=== PATIENT | female | born 1940 | race Caucasian/White ===

== ENCOUNTER → 2016-05-14 | Outpatient (CLI) | payer OTHER | LOC: HYPER 06:57 | DX: S81.802D Unspecified open wound, left lower leg, subsequent encounter (principal); R60.0 Localized edema; J44.9 Chronic obstructive pulmonary disease, unspecified; Z87.891 Personal history of nicotine dependence; X58.XXXD Exposure to other specified factors, subsequent encounter ==

== ENCOUNTER → 2017-04-30 | Outpatient (CLI) | payer OTHER | LOC: RAD 12:03 | DX: I51.7 Cardiomegaly (principal); J44.9 Chronic obstructive pulmonary disease, unspecified; M41.86 Other forms of scoliosis, lumbar region ==

== ENCOUNTER → 2017-05-02 | Outpatient (CLI) | payer OTHER ==
[2017-05-02 15:42] LABS: CREATININE 0.7 mg/dL (0.6-1.0)
== END ==
LOC: CAT 14:33
PROVIDERS: Internal Medicine Pulmonary Disease
DX: J84.9 Interstitial pulmonary disease, unspecified (principal); I25.10 Atherosclerotic heart disease of native coronary artery without angina pectoris; I48.91 Unspecified atrial fibrillation; J98.4 Other disorders of lung; J44.9 Chronic obstructive pulmonary disease, unspecified

== ENCOUNTER → 2017-05-16 | Outpatient (CLI) | payer OTHER | LOC: HYPER | DX: T81.89XA Other complications of procedures, not elsewhere classified, initial encounter (principal); I87.2 Venous insufficiency (chronic) (peripheral); L97.811 Non-pressure chronic ulcer of other part of right lower leg limited to breakdown of skin; L97.821 Non-pressure chronic ulcer of other part of left lower leg limited to breakdown of skin; J44.9 Chronic obstructive pulmonary disease, unspecified; E78.5 Hyperlipidemia, unspecified; I48.0 Paroxysmal atrial fibrillation; M19.90 Unspecified osteoarthritis, unspecified site; M85.80 Other specified disorders of bone density and structure, unspecified site; M81.0 Age-related osteoporosis without current pathological fracture; Z87.891 Personal history of nicotine dependence; Z72.89 Other problems related to lifestyle; Y83.8 Other surgical procedures as the cause of abnormal reaction of the patient, or of later complication, without mention of misadventure at the time of the procedure ==

== ENCOUNTER → 2017-11-19 | Outpatient (CLI) | payer OTHER | LOC: HYPER 05-30 06:51 | DX: T81.4XXD Infection following a procedure, subsequent encounter (principal); S81.802A Unspecified open wound, left lower leg, initial encounter; I87.2 Venous insufficiency (chronic) (peripheral); E78.5 Hyperlipidemia, unspecified; I48.0 Paroxysmal atrial fibrillation; M81.0 Age-related osteoporosis without current pathological fracture; M19.90 Unspecified osteoarthritis, unspecified site; J44.9 Chronic obstructive pulmonary disease, unspecified; Z87.891 Personal history of nicotine dependence; Z79.01 Long term (current) use of anticoagulants; Y83.8 Other surgical procedures as the cause of abnormal reaction of the patient, or of later complication, without mention of misadventure at the time of the procedure; X58.XXXA Exposure to other specified factors, initial encounter; Y93.89 Activity, other specified; Y92.89 Other specified places as the place of occurrence of the external cause; Y99.8 Other external cause status ==

== ENCOUNTER → 2018-08-06 | Outpatient (CLI) | payer OTHER | LOC: HYPER 08-05 07:45 | DX: L02.416 Cutaneous abscess of left lower limb (principal); S80.12XA Contusion of left lower leg, initial encounter; E78.5 Hyperlipidemia, unspecified; I48.0 Paroxysmal atrial fibrillation; I87.2 Venous insufficiency (chronic) (peripheral); R60.0 Localized edema; M85.80 Other specified disorders of bone density and structure, unspecified site; M81.0 Age-related osteoporosis without current pathological fracture; M19.90 Unspecified osteoarthritis, unspecified site; J44.9 Chronic obstructive pulmonary disease, unspecified; Z87.891 Personal history of nicotine dependence; Z79.01 Long term (current) use of anticoagulants; X58.XXXA Exposure to other specified factors, initial encounter; Y93.89 Activity, other specified; Y92.89 Other specified places as the place of occurrence of the external cause; Y99.8 Other external cause status ==

== ENCOUNTER → 2018-10-14 | Outpatient (CLI) | payer OTHER | LOC: HYPER 08-13 06:36 | DX: S80.12XA Contusion of left lower leg, initial encounter (principal); L02.416 Cutaneous abscess of left lower limb; I87.2 Venous insufficiency (chronic) (peripheral); I48.0 Paroxysmal atrial fibrillation; E78.5 Hyperlipidemia, unspecified; M85.80 Other specified disorders of bone density and structure, unspecified site; M81.0 Age-related osteoporosis without current pathological fracture; M19.90 Unspecified osteoarthritis, unspecified site; R60.0 Localized edema; J44.9 Chronic obstructive pulmonary disease, unspecified; Z87.891 Personal history of nicotine dependence; Z79.01 Long term (current) use of anticoagulants; X58.XXXA Exposure to other specified factors, initial encounter; Y93.89 Activity, other specified; Y92.89 Other specified places as the place of occurrence of the external cause; Y99.8 Other external cause status ==

== ENCOUNTER → 2018-11-06 | Outpatient (CLI) | payer OTHER | LOC: HYPER 10-28 10:22 | DX: S80.12XD Contusion of left lower leg, subsequent encounter (principal); L02.416 Cutaneous abscess of left lower limb; I87.2 Venous insufficiency (chronic) (peripheral); I48.0 Paroxysmal atrial fibrillation; E78.5 Hyperlipidemia, unspecified; M85.80 Other specified disorders of bone density and structure, unspecified site; M81.0 Age-related osteoporosis without current pathological fracture; M19.90 Unspecified osteoarthritis, unspecified site; R60.0 Localized edema; J44.9 Chronic obstructive pulmonary disease, unspecified; Z87.891 Personal history of nicotine dependence; Z79.01 Long term (current) use of anticoagulants; X58.XXXD Exposure to other specified factors, subsequent encounter ==

== ENCOUNTER → 2018-11-24 | Outpatient (CLI) | payer OTHER | LOC: HYPER 06:55 | DX: S80.12XD Contusion of left lower leg, subsequent encounter (principal); S81.801D Unspecified open wound, right lower leg, subsequent encounter; L02.416 Cutaneous abscess of left lower limb; I87.2 Venous insufficiency (chronic) (peripheral); E78.5 Hyperlipidemia, unspecified; M85.80 Other specified disorders of bone density and structure, unspecified site; M81.0 Age-related osteoporosis without current pathological fracture; I48.0 Paroxysmal atrial fibrillation; R60.0 Localized edema; M19.90 Unspecified osteoarthritis, unspecified site; J44.9 Chronic obstructive pulmonary disease, unspecified; Z87.891 Personal history of nicotine dependence; Z79.01 Long term (current) use of anticoagulants; X58.XXXD Exposure to other specified factors, subsequent encounter ==

== ENCOUNTER → 2019-09-15 | Outpatient (CLI) | payer OTHER | LOC: HYPER 10:42 | DX: L97.812 Non-pressure chronic ulcer of other part of right lower leg with fat layer exposed (principal); I87.2 Venous insufficiency (chronic) (peripheral); I48.0 Paroxysmal atrial fibrillation; J44.9 Chronic obstructive pulmonary disease, unspecified; E78.5 Hyperlipidemia, unspecified; M81.0 Age-related osteoporosis without current pathological fracture; M19.90 Unspecified osteoarthritis, unspecified site; Z79.01 Long term (current) use of anticoagulants; Z87.891 Personal history of nicotine dependence ==

== ENCOUNTER → 2019-09-22 | Outpatient (CLI) | payer OTHER | LOC: HYPER 11:01 | PROVIDERS: ATTEND Emergency Medicine | DX: L97.812 Non-pressure chronic ulcer of other part of right lower leg with fat layer exposed (principal); L84 Corns and callosities; I87.2 Venous insufficiency (chronic) (peripheral); I48.0 Paroxysmal atrial fibrillation; H26.9 Unspecified cataract; E78.5 Hyperlipidemia, unspecified; J44.9 Chronic obstructive pulmonary disease, unspecified; M81.0 Age-related osteoporosis without current pathological fracture; M19.90 Unspecified osteoarthritis, unspecified site; M85.88 Other specified disorders of bone density and structure, other site; Z79.01 Long term (current) use of anticoagulants; Z87.891 Personal history of nicotine dependence ==

== ENCOUNTER → 2020-01-06 | Outpatient (CLI) | payer OTHER | LOC: HYPER 12:28 | PROVIDERS: ATTEND Emergency Medicine | DX: L97.822 Non-pressure chronic ulcer of other part of left lower leg with fat layer exposed (principal); L97.812 Non-pressure chronic ulcer of other part of right lower leg with fat layer exposed; L84 Corns and callosities; I87.2 Venous insufficiency (chronic) (peripheral); I48.0 Paroxysmal atrial fibrillation; E78.5 Hyperlipidemia, unspecified; H26.9 Unspecified cataract; J44.9 Chronic obstructive pulmonary disease, unspecified; M81.0 Age-related osteoporosis without current pathological fracture; M19.90 Unspecified osteoarthritis, unspecified site; M85.80 Other specified disorders of bone density and structure, unspecified site; Z79.01 Long term (current) use of anticoagulants; Z87.891 Personal history of nicotine dependence ==

== ENCOUNTER → 2020-04-26 | Outpatient (CLI) | payer OTHER | LOC: HYPER 13:07 | PROVIDERS: ATTEND Emergency Medicine | DX: S80.11XA Contusion of right lower leg, initial encounter (principal); L84 Corns and callosities; I87.2 Venous insufficiency (chronic) (peripheral); I48.0 Paroxysmal atrial fibrillation; E78.5 Hyperlipidemia, unspecified; E66.9 Obesity, unspecified; H26.9 Unspecified cataract; J44.9 Chronic obstructive pulmonary disease, unspecified; M81.0 Age-related osteoporosis without current pathological fracture; M19.90 Unspecified osteoarthritis, unspecified site; M85.80 Other specified disorders of bone density and structure, unspecified site; Z79.01 Long term (current) use of anticoagulants; Z87.891 Personal history of nicotine dependence; Z68.23 Body mass index [BMI] 23.0-23.9, adult; W22.8XXA Striking against or struck by other objects, initial encounter; Y93.89 Activity, other specified; Y92.89 Other specified places as the place of occurrence of the external cause; Y99.8 Other external cause status ==

== ENCOUNTER → 2020-05-05 | Outpatient (CLI) | payer OTHER | LOC: SJCVCIMAG 13:37 | PROVIDERS: ATTEND Emergency Medicine | DX: M79.604 Pain in right leg (principal); M79.89 Other specified soft tissue disorders; Z79.82 Long term (current) use of aspirin; Z79.01 Long term (current) use of anticoagulants; Z79.899 Other long term (current) drug therapy ==

== ENCOUNTER → 2020-05-12 | Outpatient (CLI) | payer OTHER | LOC: HYPER 13:35 | PROVIDERS: ATTEND Emergency Medicine | DX: S80.11XD Contusion of right lower leg, subsequent encounter (principal); L97.812 Non-pressure chronic ulcer of other part of right lower leg with fat layer exposed; L84 Corns and callosities; R60.0 Localized edema; I87.2 Venous insufficiency (chronic) (peripheral); E66.9 Obesity, unspecified; E78.5 Hyperlipidemia, unspecified; I48.0 Paroxysmal atrial fibrillation; H26.9 Unspecified cataract; J44.9 Chronic obstructive pulmonary disease, unspecified; M81.0 Age-related osteoporosis without current pathological fracture; M19.90 Unspecified osteoarthritis, unspecified site; M85.80 Other specified disorders of bone density and structure, unspecified site; Z79.01 Long term (current) use of anticoagulants; Z87.891 Personal history of nicotine dependence; Z68.23 Body mass index [BMI] 23.0-23.9, adult; W22.8XXD Striking against or struck by other objects, subsequent encounter ==

== ENCOUNTER → 2020-05-26 | Outpatient (CLI) | payer OTHER | LOC: HYPER 13:51 | PROVIDERS: ATTEND Emergency Medicine | DX: S80.11XD Contusion of right lower leg, subsequent encounter (principal); L97.812 Non-pressure chronic ulcer of other part of right lower leg with fat layer exposed; L84 Corns and callosities; R60.0 Localized edema; I87.2 Venous insufficiency (chronic) (peripheral); E66.9 Obesity, unspecified; E78.5 Hyperlipidemia, unspecified; I48.0 Paroxysmal atrial fibrillation; H26.9 Unspecified cataract; J44.9 Chronic obstructive pulmonary disease, unspecified; M81.0 Age-related osteoporosis without current pathological fracture; M19.90 Unspecified osteoarthritis, unspecified site; M85.80 Other specified disorders of bone density and structure, unspecified site; Z79.01 Long term (current) use of anticoagulants; Z87.891 Personal history of nicotine dependence; Z68.23 Body mass index [BMI] 23.0-23.9, adult; W22.8XXD Striking against or struck by other objects, subsequent encounter ==

== ENCOUNTER → 2020-06-02 | Outpatient (CLI) | payer OTHER | LOC: HYPER 13:37 | PROVIDERS: ATTEND Emergency Medicine | DX: S80.11XD Contusion of right lower leg, subsequent encounter (principal); L97.812 Non-pressure chronic ulcer of other part of right lower leg with fat layer exposed; L84 Corns and callosities; R60.0 Localized edema; I87.2 Venous insufficiency (chronic) (peripheral); E66.9 Obesity, unspecified; E78.5 Hyperlipidemia, unspecified; I48.0 Paroxysmal atrial fibrillation; H26.9 Unspecified cataract; J44.9 Chronic obstructive pulmonary disease, unspecified; M81.0 Age-related osteoporosis without current pathological fracture; M19.90 Unspecified osteoarthritis, unspecified site; M85.80 Other specified disorders of bone density and structure, unspecified site; Z79.01 Long term (current) use of anticoagulants; Z87.891 Personal history of nicotine dependence; Z68.23 Body mass index [BMI] 23.0-23.9, adult; W22.8XXD Striking against or struck by other objects, subsequent encounter ==

== ENCOUNTER → 2020-06-13 | Outpatient (CLI) | payer OTHER | LOC: HYPER 13:26 | PROVIDERS: ATTEND Emergency Medicine | DX: S80.11XD Contusion of right lower leg, subsequent encounter (principal); L97.812 Non-pressure chronic ulcer of other part of right lower leg with fat layer exposed; L84 Corns and callosities; R60.0 Localized edema; I87.2 Venous insufficiency (chronic) (peripheral); E66.9 Obesity, unspecified; E78.5 Hyperlipidemia, unspecified; I48.0 Paroxysmal atrial fibrillation; H26.9 Unspecified cataract; J44.9 Chronic obstructive pulmonary disease, unspecified; M81.0 Age-related osteoporosis without current pathological fracture; M19.90 Unspecified osteoarthritis, unspecified site; M85.80 Other specified disorders of bone density and structure, unspecified site; Z79.01 Long term (current) use of anticoagulants; Z87.891 Personal history of nicotine dependence; Z68.23 Body mass index [BMI] 23.0-23.9, adult; W22.8XXD Striking against or struck by other objects, subsequent encounter ==

== ENCOUNTER → 2020-07-20 | Outpatient (CLI) | payer OTHER, MEDICARE | LOC: HYPER 12:59 | PROVIDERS: ATTEND Emergency Medicine | DX: S80.11XD Contusion of right lower leg, subsequent encounter (principal); L97.812 Non-pressure chronic ulcer of other part of right lower leg with fat layer exposed; S81.811A Laceration without foreign body, right lower leg, initial encounter; L84 Corns and callosities; R60.0 Localized edema; E66.9 Obesity, unspecified; I87.2 Venous insufficiency (chronic) (peripheral); E78.5 Hyperlipidemia, unspecified; I48.0 Paroxysmal atrial fibrillation; H26.9 Unspecified cataract; J44.9 Chronic obstructive pulmonary disease, unspecified; M81.0 Age-related osteoporosis without current pathological fracture; M19.90 Unspecified osteoarthritis, unspecified site; M85.80 Other specified disorders of bone density and structure, unspecified site; Z79.01 Long term (current) use of anticoagulants; Z87.891 Personal history of nicotine dependence; Z68.23 Body mass index [BMI] 23.0-23.9, adult; W22.8XXD Striking against or struck by other objects, subsequent encounter; X58.XXXA Exposure to other specified factors, initial encounter; Y93.89 Activity, other specified; Y92.89 Other specified places as the place of occurrence of the external cause; Y99.8 Other external cause status ==

== ENCOUNTER → 2020-10-24 | Outpatient (CLI) | payer OTHER, MEDICARE | LOC: HYPER 08:24 | PROVIDERS: ATTEND Emergency Medicine | DX: S81.812A Laceration without foreign body, left lower leg, initial encounter (principal); S80.11XA Contusion of right lower leg, initial encounter; S61.012A Laceration without foreign body of left thumb without damage to nail, initial encounter; I87.2 Venous insufficiency (chronic) (peripheral); R60.0 Localized edema; J44.9 Chronic obstructive pulmonary disease, unspecified; E78.5 Hyperlipidemia, unspecified; M81.0 Age-related osteoporosis without current pathological fracture; I48.0 Paroxysmal atrial fibrillation; M19.90 Unspecified osteoarthritis, unspecified site; H26.9 Unspecified cataract; Z87.891 Personal history of nicotine dependence; Z79.899 Other long term (current) drug therapy; Z79.01 Long term (current) use of anticoagulants; W22.8XXA Striking against or struck by other objects, initial encounter; Y93.89 Activity, other specified; Y92.89 Other specified places as the place of occurrence of the external cause; Y99.8 Other external cause status ==

== ENCOUNTER → 2021-02-15 | Outpatient (CLI) | payer OTHER, MEDICARE | LOC: HYPER 07:32 | PROVIDERS: ATTEND Emergency Medicine | DX: S81.812D Laceration without foreign body, left lower leg, subsequent encounter (principal); S80.12XD Contusion of left lower leg, subsequent encounter; S80.11XD Contusion of right lower leg, subsequent encounter; S61.012D Laceration without foreign body of left thumb without damage to nail, subsequent encounter; I87.2 Venous insufficiency (chronic) (peripheral); R60.1 Generalized edema; J44.9 Chronic obstructive pulmonary disease, unspecified; E78.5 Hyperlipidemia, unspecified; M81.0 Age-related osteoporosis without current pathological fracture; I48.0 Paroxysmal atrial fibrillation; M19.90 Unspecified osteoarthritis, unspecified site; H26.9 Unspecified cataract; Z87.891 Personal history of nicotine dependence; Z79.01 Long term (current) use of anticoagulants; W22.8XXD Striking against or struck by other objects, subsequent encounter ==

== ENCOUNTER → 2021-02-22 | Outpatient (CLI) | payer OTHER, MEDICARE | LOC: HYPER 08:09 | PROVIDERS: ATTEND Emergency Medicine | DX: S81.802D Unspecified open wound, left lower leg, subsequent encounter (principal); I87.2 Venous insufficiency (chronic) (peripheral); R60.0 Localized edema; J44.9 Chronic obstructive pulmonary disease, unspecified; E78.5 Hyperlipidemia, unspecified; M85.80 Other specified disorders of bone density and structure, unspecified site; M81.0 Age-related osteoporosis without current pathological fracture; I48.0 Paroxysmal atrial fibrillation; M19.90 Unspecified osteoarthritis, unspecified site; H26.9 Unspecified cataract; Z79.01 Long term (current) use of anticoagulants; Z87.891 Personal history of nicotine dependence; Z90.10 Acquired absence of unspecified breast and nipple; X58.XXXD Exposure to other specified factors, subsequent encounter ==

== ENCOUNTER → 2021-03-08 | Outpatient (CLI) | payer OTHER, MEDICARE | LOC: HYPER 08:46 | PROVIDERS: ATTEND Emergency Medicine | DX: S81.802D Unspecified open wound, left lower leg, subsequent encounter (principal); S80.12XD Contusion of left lower leg, subsequent encounter; I87.2 Venous insufficiency (chronic) (peripheral); R60.0 Localized edema; J44.9 Chronic obstructive pulmonary disease, unspecified; E78.5 Hyperlipidemia, unspecified; M85.80 Other specified disorders of bone density and structure, unspecified site; M81.0 Age-related osteoporosis without current pathological fracture; I48.0 Paroxysmal atrial fibrillation; M19.90 Unspecified osteoarthritis, unspecified site; H26.9 Unspecified cataract; Z79.01 Long term (current) use of anticoagulants; Z90.10 Acquired absence of unspecified breast and nipple; Z87.891 Personal history of nicotine dependence; Z79.899 Other long term (current) drug therapy; X58.XXXD Exposure to other specified factors, subsequent encounter ==